=== PATIENT | female | born 1960 | race Caucasian/White ===

== ENCOUNTER 2016-09-14 10:30 | Outpatient (CLI) | payer OTHER ==
[2016-09-14 10:52] LABS: Hemoglobin A1c 6.4 % (4.0-6.0)
[2016-09-14 11:05] LABS: ALT (SGPT) 20 U/L (0-55); AST (SGOT) 14 U/L (5-34); Alkaline Phosphatase 55 U/L (40-150); Anion Gap 16 mmol/L (10-20); BUN (Urea Nitrogen) 25 mg/dL (9.8-20.1); Bilirubin, Total 0.3 mg/dL (0.2-1.2); Calc. Creatinine Clearance 0 mL/min (70-130); Calcium 9.6 mg/dL (7.8-10.44); Carbon Dioxide 25 mmol/L (22-29); Cardiac Risk 3.7 (Less than 4.5); Chloride 108 mmol/L (98-107); Cholesterol 179 mg/dL (< 200 Desired); Estimated GFR-MDRD 66; Globulin 2.6 g/dL (2.4-3.5); Glucose 105 mg/dL (70-105); HDL Cholesterol 49 mg/dL (>60 Neg Risk); LDL Cholesterol, Calculated 105 mg/dL; Potassium 4.2 mmol/L (3.5-5.1); Protein, Total 6.6 g/dL (6.0-8.3); Sodium 145 mmol/L (136-145); Triglycerides 127 mg/dL (Less than 150)
== END 2016-09-14 10:31 | disposition home or self-care (01) ==
LOC: MADLABBHPM 10:30
PROVIDERS: ATTEND Family Medicine
DX: E78.2 Mixed hyperlipidemia (principal); E11.29 Type 2 diabetes mellitus with other diabetic kidney complication
CPT/HCPCS: 36415; 80053; 80061; 83036; 84443

== ENCOUNTER 2016-10-17 11:02 | Outpatient (CLI) | payer OTHER ==
[2016-10-18 23:58] LABS: HPV High Risk Type 16 Negative (Negative); HPV High Risk Type 18 Negative (Negative); HPV Other High Risk Types Negative (Negative)
== END 2016-10-17 11:03 | disposition home or self-care (01) ==
LOC: MADLABBHPM 11:02
PROVIDERS: ATTEND Family Medicine
DX: Z01.419 Encounter for gynecological examination (general) (routine) without abnormal findings (principal)
CPT/HCPCS: 36415; 87624; 88142; G0123

== ENCOUNTER 2017-01-11 11:26 | Outpatient (CLI) | payer OTHER ==
[2017-01-11 11:56] LABS: Hemoglobin A1c 7.4 % (4.0-6.0)
[2017-01-11 12:03] LABS: ALT (SGPT) 21 U/L (8-55); AST (SGOT) 18 U/L (5-34); Albumin 3.9 g/dL (3.5-5.0); Alkaline Phosphatase 61 U/L (40-150); Anion Gap 13 mmol/L (10-20); BUN (Urea Nitrogen) 22 mg/dL (9.8-20.1); Bilirubin, Total 0.3 mg/dL (0.2-1.2); Calc. Creatinine Clearance 0 mL/min (70-130); Calcium 9.4 mg/dL (7.8-10.44); Carbon Dioxide 27 mmol/L (22-29); Chloride 107 mmol/L (98-107); Estimated GFR-MDRD 68; Globulin 2.7 g/dL (2.4-3.5); Glucose 106 mg/dL (70-105); Potassium 4.3 mmol/L (3.5-5.1); Protein, Total 6.6 g/dL (6.0-8.3); Sodium 143 mmol/L (136-145)
[2017-01-11 12:34] LABS: Free T4 (Free Thyroxine) 1.09 ng/dL (0.70-1.48); Thyroid Stimulating Hormone 1.4884 uIU/mL (0.35-4.94)
[2017-01-11 17:31] LABS: Creatinine, Urine 73.38 mg/dL (47-110); Microalbumin Urine 23.8 mg/dL (0.5-50.0); Microalbumin/Creat Ratio 324.3 mg/g (Less than 30)
== END 2017-01-11 11:27 ==
LOC: MADLABBHPM 11:26
PROVIDERS: ATTEND Family Medicine
DX: E11.29 Type 2 diabetes mellitus with other diabetic kidney complication (principal)
CPT/HCPCS: 36415; 80053; 82043; 83036; 84439; 84443

== ENCOUNTER 2017-05-05 08:40 | Outpatient (CLI) | payer OTHER ==
[2017-05-05 09:43] LABS: Hemoglobin A1c 8.5 % (4.0-6.0)
[2017-05-05 09:44] LABS: ALT (SGPT) 17 U/L (8-55); AST (SGOT) 13 U/L (5-34); Albumin 3.7 g/dL (3.5-5.0); Anion Gap 12 mmol/L (10-20); BUN (Urea Nitrogen) 20 mg/dL (9.8-20.1); Bilirubin, Total 0.3 mg/dL (0.2-1.2); Calc. Creatinine Clearance 0 mL/min (70-130); Calcium 9.3 mg/dL (7.8-10.44); Carbon Dioxide 27 mmol/L (22-29); Cardiac Risk 4.4 (Less than 4.5); Chloride 108 mmol/L (98-107); Cholesterol 166 mg/dl (< 200 Desired); Estimated GFR-MDRD 68; Globulin 2.9 g/dL (2.4-3.5); Glucose 131 mg/dL (70-105); HDL Cholesterol 38 mg/dL (>60 Neg Risk); LDL Cholesterol, Calculated 98 mg/dL; Potassium 4.1 mmol/L (3.5-5.1); Protein, Total 6.6 g/dL (6.0-8.3); Sodium 143 mmol/L (136-145); Triglycerides 152 mg/dL (Less than 150)
[2017-05-05 10:12] LABS: Alkaline Phosphatase 64 U/L (40-150)
[2017-05-05 10:17] LABS: Hemoglobin 12.9 g/dL (12.0-16.0)
[2017-05-05 17:42] LABS: Creatinine, Urine 40.15 mg/dL (47-110)
== END 2017-05-05 08:41 | disposition home or self-care (01) ==
LOC: MADLABBHPM 08:40
PROVIDERS: ATTEND Internal Medicine Nephrology
DX: E11.22 Type 2 diabetes mellitus with diabetic chronic kidney disease (principal); N18.3 Chronic kidney disease, stage 3 (moderate); D63.1 Anemia in chronic kidney disease; E55.9 Vitamin D deficiency, unspecified; R80.9 Proteinuria, unspecified; R30.9 Painful micturition, unspecified
CPT/HCPCS: 36415; 80053; 80061; 82570; 83036; 83970; 84156; 85014; 85018

== ENCOUNTER 2017-10-23 12:27 | Emergency (ER) | payer OTHER ==
[~2017-10-23 12:27] MED LIST: Nitroglycerin 0.4 MG TAB (25 Tab Bottle) ONE
[2017-10-23 13:04] LABS: %Eosinophils 2.6 % (0.0-10.0); %Lymphocytes 29.1 % (21.0-51.0); %Monocytes 5.3 % (0.0-10.0); %Neutrophils 61.5 % (42.0-75.0); Hemoglobin 12.7 g/dL (12.0-16.0); Mean Corpuscular HGB CONC 33.2 g/dL (32.0-36.0); Mean Corpuscular Hemoglobin 29.8 pg (27.0-31.0); Mean Corpuscular Volume 89.7 fL (81.0-99.0); Mean Platelet Volume 7.8 fL (7.4-10.4); Platelet Count 297 thou/uL (130-400); Red Blood Cell (RBC) Count 4.28 mill/uL (4.20-5.40); White Blood Cell (WBC) Count 9.3 thou/uL (4.8-10.8)
--- NOTE | 2017-10-23 13:04 | RAD ---
SINGLE VIEW OF THE CHEST: COMPARISON: 05/28/14. HISTORY: Chest pain. FINDINGS: Single view of the chest shows a normal sized cardiomediastinal silhouette. There is no evidence of c onsolidation, mass, or pleural effusion. The bones are unremarkable. IMPRESSION: No evidence of acute cardiopulmonary disease. POS: [facility]
[2017-10-23 13:05] LABS: #Basophils 0.1 thou/uL (0.0-0.2); #Eosinphils 0.2 thou/uL (0.0-0.7); #Lymphocytes 2.8 thou/uL (1.20-3.40); #Monocytes 0.5 thou/uL (0.11-0.59); #Neutrophils 5.7 thou/uL (1.40-6.50); %Basophils 0.8 % (0.0-1.0)
[2017-10-23 13:08] LABS: INR-International Normal Ratio 0.9; Prothrombin Time 12.4 SEC (12.0-14.7)
[2017-10-23 13:09] LABS: PTT 28.2 SEC (22.9-36.1)
[2017-10-23 13:19] LABS: ALT (SGPT) 22 U/L (8-55); AST (SGOT) 20 U/L (5-34); Albumin 4.1 g/dL (3.5-5.0); Alkaline Phosphatase 52 U/L (40-150); Anion Gap 18 mmol/L (10-20); BUN (Urea Nitrogen) 22 mg/dL (9.8-20.1); Bilirubin, Total 0.3 mg/dL (0.2-1.2); Calc. Creatinine Clearance 0 mL/min (70-130); Calcium 9.5 mg/dL (7.8-10.44); Carbon Dioxide 22 mmol/L (22-29); Chloride 107 mmol/L (98-107); Estimated GFR-MDRD 67; Globulin 2.9 g/dL (2.4-3.5); Glucose 83 mg/dL (70-105); Sodium 143 mmol/L (136-145)
[2017-10-23] MEDS ORDERED: Ondansetron ODT 4 MG TAB ONE (13:38)
[2017-10-23] MEDS ORDERED: Ketorolac Tromethamine 30 MG/ML VIAL ONE (13:38)
== END 2017-10-23 14:10 | disposition home or self-care (01) ==
LOC: MADERS 12:27
DX: M94.0 Chondrocostal junction syndrome [Tietze] (principal); E11.9 Type 2 diabetes mellitus without complications; E78.5 Hyperlipidemia, unspecified; I10 Essential (primary) hypertension; F17.220 Nicotine dependence, chewing tobacco, uncomplicated
CPT/HCPCS: 71045; 80053; 82553; 84484; 85025; 85610; 85730; 93005; 94760; 96374; J1885; Q0162

== ENCOUNTER 2018-02-06 11:18 | Outpatient (CLI) | payer OTHER ==
[2018-02-06 11:57] LABS: ALT (SGPT) 18 U/L (8-55); AST (SGOT) 14 U/L (5-34); Albumin 3.6 g/dL (3.5-5.0); Alkaline Phosphatase 79 U/L (40-150); Anion Gap 15 mmol/L (10-20); BUN (Urea Nitrogen) 17 mg/dL (9.8-20.1); Bilirubin, Total 0.3 mg/dL (0.2-1.2); Calc. Creatinine Clearance 0 mL/min (70-130); Calcium 8.9 mg/dL (7.8-10.44); Carbon Dioxide 24 mmol/L (22-29); Chloride 110 mmol/L (98-107); Estimated GFR-MDRD 74; Globulin 2.6 g/dL (2.4-3.5); Glucose 131 mg/dL (70-105); Protein, Total 6.2 g/dL (6.0-8.3); Sodium 145 mmol/L (136-145)
[2018-02-06 17:13] LABS: Hemoglobin A1c 6.3 % (4.0-6.0)
== END 2018-02-06 11:19 | disposition home or self-care (01) ==
LOC: MADLABBHPM 11:18
PROVIDERS: ATTEND Family Medicine
DX: E11.29 Type 2 diabetes mellitus with other diabetic kidney complication (principal)
CPT/HCPCS: 36415; 80053; 83036

== ENCOUNTER 2019-04-23 15:32 | Emergency (ER) | payer OTHER ==
--- NOTE | 2019-04-23 16:17 | RAD ---
XR Wrist 3 Lt View STANDARD HISTORY: Left wrist pain for 2 weeks. Denies trauma FINDINGS: No fracture or dislocation is identified. Mild degenerative changes are present.
== END 2019-04-23 16:45 | disposition home or self-care (01) ==
LOC: MADERS 15:32
DX: G56.02 Carpal tunnel syndrome, left upper limb (principal); E11.9 Type 2 diabetes mellitus without complications; I10 Essential (primary) hypertension; E78.5 Hyperlipidemia, unspecified; E78.00 Pure hypercholesterolemia, unspecified; F17.220 Nicotine dependence, chewing tobacco, uncomplicated

== ENCOUNTER 2020-11-16 08:36 | Outpatient (CLI) | payer OTHER ==
[2020-11-16 09:18] LABS: #Basophils 0.1 thou/uL (0.0-0.2); #Eosinphils 0.2 thou/uL (0.0-0.7); #Lymphocytes 1.3 thou/uL (1.20-3.40); #Monocytes 0.5 thou/uL (0.11-0.59); #Neutrophils 5.5 thou/uL (1.40-6.50); %Eosinophils 2.9 % (0.0-10.0); %Lymphocytes 16.7 % (21.0-51.0); %Monocytes 6.6 % (0.0-10.0); %Neutrophils 72.8 % (42.0-75.0); Hemoglobin 11.7 g/dL (12.0-16.0); Mean Corpuscular Hemoglobin 29.6 pg (27.0-31.0); Mean Corpuscular Volume 95.5 fL (78.0-98.0); Mean Platelet Volume 8.4 fL (7.4-10.4); Platelet Count 251 thou/uL (130-400); RBC Distribution Width 13.1 % (11.5-14.5); Red Blood Cell (RBC) Count 3.96 mill/uL (4.20-5.40); White Blood Cell (WBC) Count 7.6 thou/uL (4.8-10.8)
== END 2020-11-16 08:37 | disposition home or self-care (01) ==
LOC: MADLAB 08:36
PROVIDERS: ATTEND Family Medicine
DX: D64.9 Anemia, unspecified (principal)
CPT/HCPCS: 36415; 82728; 85025

== ENCOUNTER 2022-04-29 10:46 | Outpatient (CLI) | payer OTHER ==
[2022-04-29 11:16] LABS: Hemoglobin 11.2 g/dL (12.0-16.0); Mean Corpuscular HGB CONC 31.5 g/dL (32.0-36.0); Mean Corpuscular Volume 92.1 fL (78.0-98.0); Mean Platelet Volume 9.5 fL (7.4-10.4); Platelet Count 225 thou/uL (130-400); RBC Distribution Width 12.3 % (11.5-14.5); Red Blood Cell (RBC) Count 3.87 mill/uL (4.20-5.40)
[2022-04-29 11:45] LABS: ALT (SGPT) 9 U/L (8-55); AST (SGOT) 10 U/L (5-34); Albumin 3.6 g/dL (3.4-4.8); Alkaline Phosphatase 108 U/L (40-110); Anion Gap 18 mmol/L (10-20); BUN (Urea Nitrogen) 18 mg/dL (9.8-20.1); Bilirubin, Total 0.3 mg/dL (0.2-1.2); Calc. Creatinine Clearance 0 mL/min (70-130); Calcium 8.5 mg/dL (7.8-10.44); Carbon Dioxide 26 mmol/L (23-31); Cardiac Risk 3.3 (Less than 4.5); Chloride 109 mmol/L (98-107); Cholesterol 115 mg/dl (< 200 Desired); Estimated GFR 64; Globulin 2.4 g/dL (2.4-3.5); Glucose 104 mg/dL (80-115); HDL Cholesterol 35 mg/dL (>60 Neg Risk); LDL Cholesterol, Calculated 47 mg/dL; Potassium 4.5 mmol/L (3.5-5.1); Sodium 148 mmol/L (136-145); Triglycerides 165 mg/dL (Less than 150)
[2022-04-29 16:58] LABS: Hemoglobin A1c 6.7 % (4.0-6.0)
== END 2022-04-29 10:47 | disposition home or self-care (01) ==
LOC: MADLABBHPM 10:46 → MADLAB 10:47
PROVIDERS: ATTEND Family Medicine
DX: E78.2 Mixed hyperlipidemia (principal); I10 Essential (primary) hypertension; E11.29 Type 2 diabetes mellitus with other diabetic kidney complication; D64.9 Anemia, unspecified
CPT/HCPCS: 80053; 80061; 82728; 83036; 85027

== ENCOUNTER 2022-08-29 10:15 | Emergency (ER) | payer OTHER | END 2022-08-29 11:13 | disposition home or self-care (01) | LOC: MADERS 10:15 | DX: L03.115 Cellulitis of right lower limb (principal); E11.9 Type 2 diabetes mellitus without complications; I10 Essential (primary) hypertension; E78.00 Pure hypercholesterolemia, unspecified; F17.220 Nicotine dependence, chewing tobacco, uncomplicated; Z79.899 Other long term (current) drug therapy; Z79.84 Long term (current) use of oral hypoglycemic drugs; Z79.82 Long term (current) use of aspirin | CPT/HCPCS: 36416; 99283 ==

== ENCOUNTER 2023-07-11 14:18 | Outpatient (CLI) | payer OTHER ==
[2023-07-11 15:05] LABS: ALT (SGPT) 12 U/L (8-55); AST (SGOT) 14 U/L (5-34); Albumin 4.2 g/dL (3.4-4.8); Alkaline Phosphatase 119 U/L (40-110); Anion Gap 16 mmol/L (10-20); BUN (Urea Nitrogen) 19 mg/dL (9.8-20.1); Bilirubin, Total 0.5 mg/dL (0.2-1.2); Calc. Creatinine Clearance 0 mL/min (70-130); Carbon Dioxide 25 mmol/L (23-31); Cardiac Risk 3.1 (Less than 4.5); Chloride 103 mmol/L (98-107); Cholesterol 141 mg/dl (< 200 Desired); Estimated GFR 65; Globulin 2.6 g/dL (2.4-3.5); Glucose 207 mg/dL (80-115); HDL Cholesterol 46 mg/dL (>60 Neg Risk); LDL Cholesterol, Calculated 65 mg/dL; Protein, Total 6.8 g/dL (5.8-8.1); Sodium 140 mmol/L (136-145); Triglycerides 151 mg/dL (Less than 150)
[2023-07-11 23:25] LABS: Hemoglobin A1c 8.2 % (4.0-6.0)
== END 2023-07-11 14:19 | disposition home or self-care (01) ==
LOC: MADLABBHPM 14:18
PROVIDERS: ATTEND Family Medicine
DX: E11.29 Type 2 diabetes mellitus with other diabetic kidney complication (principal); I10 Essential (primary) hypertension; E78.2 Mixed hyperlipidemia
CPT/HCPCS: 80053; 80061; 83036

== ENCOUNTER 2025-03-12 15:58 | Emergency (ER) | payer MEDICAID, OTHER ==
[2025-03-12] MEDS ORDERED: Lidocaine Viscous Sol 2% 15 ml UD Cup ONE (16:32)
[2025-03-12] MEDS ORDERED: Mag-Al 1200 mg/1200 mg/30 ML UDCUP ONE (16:32)
[2025-03-12] MEDS ORDERED: Ketorolac Tromethamine 30 MG (1 mL) VIAL ONE (16:32)
[2025-03-12 17:07] LABS: ALT (SGPT) 14 U/L (Less than 34); AST (SGOT) 20 U/L (11-34); Albumin 3.7 g/dL (3.1-4.5); Alkaline Phosphatase 104 U/L (40-110); Anion Gap 19 mmol/L (10-20); BUN (Urea Nitrogen) 38 mg/dL (9.8-20.1); Bilirubin, Total 0.5 mg/dL (0.3-1.2); Calc. Creatinine Clearance 0 mL/min (70-130); Calcium 9.7 mg/dL (7.8-10.44); Carbon Dioxide 21 mmol/L (23-31); Chloride 108 mmol/L (98-107); Globulin 3.1 g/dL (2.4-3.5); Glucose 115 mg/dL (80-115); Potassium 4.1 mmol/L (3.5-5.1); Sodium 144 mmol/L (136-145)
[2025-03-12 17:11] LABS: Troponin I Less than 0.010 ng/mL (< 0.028)
[2025-03-12 17:16] LABS: Hematocrit 40.9 % (36.0-47.0); Hemoglobin 12.9 g/dL (12.0-16.0); MDiff Complete? YES; Mean Corpuscular Hemoglobin 29.5 pg (27.0-31.0); Mean Corpuscular Volume 93.6 fl (78.0-98.0); Platelet Adequacy Comment Appears Adequate; Platelet Count 293 10x3/uL (130-400); Red Blood Cell (RBC) Count 4.37 mill/uL (4.20-5.40); White Blood Cell (WBC) Count 8.4 10x3/uL (4.8-10.8)
== END 2025-03-12 18:27 | disposition home or self-care (01) ==
LOC: MADERS 15:58
DX: R07.2 Precordial pain (principal); I10 Essential (primary) hypertension; E11.9 Type 2 diabetes mellitus without complications; E78.00 Pure hypercholesterolemia, unspecified; F17.210 Nicotine dependence, cigarettes, uncomplicated; Z79.84 Long term (current) use of oral hypoglycemic drugs; Z79.899 Other long term (current) drug therapy; Z79.82 Long term (current) use of aspirin
CPT/HCPCS: 71045; 80053; 83880; 84484; 85025; 85379; 93005; 96374; J1885; J7030